=== PATIENT | female | born 1935 | race Asian ===

== ENCOUNTER 2018-08-19 21:06 | Emergency (ER) | payer OTHER, MEDICAID ==
[2018-08-19] MEDS: ACETAMINOPHEN 325 MG TAB PO (22:02)
[2018-08-19] MEDS: DIPHTH/TET/ACEL PERTUSS (ADULT) 0.5 ML VIAL IM* (22:03)
== END 2018-08-19 22:53 | disposition home or self-care (01) ==
LOC: E/R 21:06
DX: S41.152A Open bite of left upper arm, initial encounter (principal); W54.0XXA Bitten by dog, initial encounter; Y92.009 Unspecified place in unspecified non-institutional (private) residence as the place of occurrence of the external cause
CPT/HCPCS: 90471; 90715; 99283-25